=== PATIENT | male | born 1965 | race Two or more races ===

== ENCOUNTER 2017-01-11 01:40 | Emergency (ER) | payer OTHER ==
[2017-01-11 01:50] VITALS: TEMP 98.1; BMI 27.3
--- NOTE | 2017-01-11 02:20 | PDOC ---
History of Present Illness - General Chief Complaint: Lightheaded Stated Complaint: NAUSEA/DIZZINESS Time Seen by Provider: 01/11/17 01:51 History Source: Patient, Significant Other Exam Limitations: No Limitations - History of Present Illness Initial Comments: 01/11/17 02:12 51yo Male patient w/ PmHx: HTN, HLD, + significant family history (Mother, Father, 2 Brother w/ [place]; Father from [place] at 49) presents to ED c/o dizziness, SOB, Vomiting x 1 hr. Patient denies CP, Back pain, diarrhea, fever, diff breathing, rash, dysuria, hematuria, hematemsis, rectal bleeding, or any other complaints at this time. PCP- Dr. Grimes Past History - Travel Traveled outside of the country in the last 30 days: No Close contact w/someone who was outside of country & ill: No - Past Medical History Allergies/Adverse Reactions: Allergies Allergy/AdvReac Type Severity Reaction Status Date / Time No Known Allergies Allergy Verified 01/11/17 01:46 Home Medications: Ambulatory Orders Atorvastatin Calcium 20 mg PO HS 01/11/17 Metoprolol Succinate [Toprol Xl -] 25 mg PO BID 01/11/17 Ondansetron [Zofran Odt -] 4 mg SL Q6H PRN #20 od.tablet 01/11/17 HTN: Yes Hypercholesterolemia: Yes - Psycho/Social/Smoking Cessation Hx Suicidal Ideation: No Smoking History: Never smoked Number of Cigarettes Smoked Daily: 0 Review of Systems - Review of Systems Able to Perform ROS?: Yes Is the patient limited Pashto proficient: No Constitutional: Yes: Chills. No: Fever Respiratory: Yes: Shortness of Breath. No: Cough, Orthopnea, SOB at Rest, Stridor, Wheezing, Productive cough Cardiac (ROS): Yes: Lightheadedness. No: Chest Pain, Edema, Palpitations, Syncope, Chest Tightness ABD/GI: Yes: Nausea, Vomiting. No: Constipated, Diarrhea, Poor Appetite, Poor Fluid Intake, Rectal Bleeding, Indigestion, Abdominal cramping, Other ( Abdominal Pain) : No: Burning, Dysuria, Discharge, Frequency, Flank Pain, Hematuria, Urgency Musculoskeletal: No: Back Pain, Joint Pain, Neck Pain Integumentary: No: Erythema, Rash, Sweating Neurological: No: Headache, Numbness, Seizure, Tingling, Tremors, Weakness, Ataxia, Dizziness All Other Systems: Reviewed and Negative *Physical Exam - Vital Signs Last Vital Signs Temp Pulse Resp BP Pulse Ox 98.1 F 51 L 18 144/97 97 01/11/17 01:47 01/11/17 01:47 01/11/17 01:47 01/11/17 01:47 01/11/17 01:47 - Physical Exam General Appearance: Yes: Nourished, Appropriately Dressed, Moderate Distress. No: Apparent Distress, Mild Distress, Severe Distress Neck: positive: Trachea midline, Supple. negative: Lymphadenopathy (R), Lymphadenopathy (L) Respiratory/Chest: positive: Lungs Clear, Normal Breath Sounds. negative: Respiratory Distress, Accessory Muscle Use, Labored Respiration, Rapid RR Cardiovascular: positive: Regular Rhythm, Regular Rate. negative: Edema, JVD, Murmur Gastrointestinal/Abdominal: positive: Soft, Increased Bowel Sounds. negative: Normal Bowel Sounds, Distended, Guarding, Rebound, Tenderness Musculoskeletal: positive: Normal Inspection. negative: CVA Tenderness Extremity: positive: Normal Capillary Refill, Normal Inspection, Normal Range of Motion. negative: Pedal Edema, Swelling Integumentary: positive: Normal Color, Dry, Warm Neurologic: positive: manager intranet II-XII NML intact, Fully Oriented, Alert, Normal Mood/ Affect, Normal Response, Motor Strength 5/5 Heart Score/ECG Review - History History: Slightly suspicious - Electrocardiogram EKG: Normal - Age Age: 45-65 - Risk Factors Risk Factors Heart Score: Yes Hx Hypertension, Yes Positive family hx of cardiac disease Based on the list above the patient has:: 1-2 risk factors - Troponin Troponin: </= normal limit - Score Heart Score - Total: 2 - ECG Impressions Normal ECG: Yes Non-specific ST Elevation: No Ischemic Changes: No Bradycardia: Yes Torsades chris Pointes: No WPW: No ED Treatment Course - LABORATORY CBC & Chemistry Diagram: 01/11/17 02:31 01/11/17 02:31 *DC/Admit/Observation/Transfer Diagnosis at time of Disposition: Dizziness Nausea & vomiting Qualifiers: Vomiting type: unspecified Vomiting Intractability: non-intractable Qualified Code(s): R11.2 - Nausea with vomiting, unspecified - Discharge Dispostion Disposition: HOME Condition at time of disposition: Improved Admit: No - Prescriptions Prescriptions: Ondansetron [Zofran Odt -] 4 mg SL Q6H PRN #20 od.tablet PRN Reason: Nausea - Patient Instructions Printed Discharge Instructions: DI for Vertigo, DI for Nausea -- Adult Additional Instructions: FOLLOW UP WITH YOUR DOCTOR THIS WEEK DISCUSSED AND SCHEDULED. TAKE MEDICATIONS PRESCRIBED. RETURN IF SYMPTOMS WORSEN, OR ANY CONCERNS FOR FURTHER EVALUATION. Print Language: KOREAN - Post Discharge Activity Work/School Note: Back to Work
[2017-01-11] MEDS ORDERED: SODIUM CHLORIDE 1,000 ML IV STA (02:21)
[2017-01-11] MEDS ORDERED: METOCLOPRAMIDE HCL INJECTION 10 MG/2 ML VIAL IVPB ONE (02:21)
[2017-01-11] MEDS ORDERED: METOCLOPRAMIDE HCL INJECTION 10 MG/2 ML VIAL ONE (02:21)
[2017-01-11 02:40] LABS: BASOPHIL 0.4 % (0-2.0); EOSINOPHIL 4.4 % (0-4.5); MCHC 32.4 g/dl (32.0-35.9); MEAN CELL VOLUME 58.4 fl (80-96); MEAN PLT VOLUME 8.8 fl (7.5-11.1); NEUTROPHILS 51.8 % (42.8-82.8); PLATELET COUNT 168 K/MM3 (134-434); RDW 16.4 % (11.9-15.9); WHITE BLOOD COUNT 6.3 K/mm3 (4.0-10.0)
--- NOTE | 2017-01-11 02:51 | PDOC ---
[id number] 97 01/11/17 01:47 01/11/17 01:47 01/11/17 01:47 01/11/17 02:26 01/11/17 01:47 ED Treatment Course - LABORATORY CBC & Chemistry Diagram: 01/11/17 02:31 01/11/17 02:31 - Medications Given in the ED: ED Medications Discontinued Medications Generic Name Dose Route Start Last Admin Trade Name Freq PRN Reason Stop Dose Admin Metoclopramide HCl 10 mg 01/11/17 02:21 01/11/17 02:27 Reglan Injection - IVPB 01/11/17 02:22 10 mg ONCE ONE Administration Medical Decision Making - Medical Decision Making 01/11/17 02:50 agree with care from DELIA Iqbal *DC/Admit/Observation/Transfer Diagnosis at time of Disposition: Nausea & vomiting, Dizziness - Discharge Dispostion Disposition: HOME Condition at time of disposition: Improved - Prescriptions Prescriptions: Ondansetron [Zofran Odt -] 4 mg SL Q6H PRN #20 od.tablet PRN Reason: Nausea - Referrals Referrals: STAFF,NOT ON [Primary Care Provider] - - Patient Instructions Printed Discharge Instructions: DI for Vertigo, DI for Nausea -- Adult Additional Instructions: FOLLOW UP WITH YOUR DOCTOR THIS WEEK DISCUSSED AND SCHEDULED. TAKE MEDICATIONS PRESCRIBED. RETURN IF SYMPTOMS WORSEN, OR ANY CONCERNS FOR FURTHER EVALUATION. Print Language: MOH[place] - Post Discharge Activity Work/School Note: Back to Work
[2017-01-11 02:53] LABS: MCH 18.9 pg (25.7-33.7)
[2017-01-11 03:16] LABS: ALBUMIN 3.9 g/dl (3.4-5.0); AMYLASE 90 U/L (25-115); ANION GAP 12 (8-16); BILIRUBIN,TOTAL 2.6 mg/dL (0.2-1.0); CALCIUM 8.6 mg/dL (8.5-10.1); CO2 26 mmol/L (21-32); GLUCOSE,RANDOM 112 mg/dL (74-106); SGOT/AST 17 U/L (15-37); SGPT/ALT 28 U/L (12-78)
[2017-01-11 03:20] LABS: ALK PHOS 89 U/L (45-117); TROPONIN I < 0.02 ng/ml (0.00-0.05)
[2017-01-11] MEDS ORDERED: PANTOPRAZOLE SODIUM 40 MG in SODIUM CHLORIDE 100 ML IVPB ONE (03:35)
[2017-01-11] MEDS ORDERED: PANTOPRAZOLE SODIUM 100 ML IVPB ONE (03:41)
[2017-01-11 04:30] VITALS: BP 109/88; PULSE 60
[2017-01-11 05:19] LABS: PLATELET ESTIMATE ADEQUATE (NORMAL)
[2017-01-11 05:20] LABS: ANISOCYTOSIS 2+; HYPOCHROMIA 2+; MICROCYTOSIS 3+; OVALOCYTES 1+; POIKILOCYTOSIS 1+; POLYCHROMASIA 1+
--- NOTE | 2017-01-11 12:21 | EKG ---
Test Reason : Blood Pressure : / mmHG Vent. Rate : 054 BPM Atrial Rate : 054 BPM P-R Int : 166 ms QRS Dur : 098 ms QT Int : 428 ms P-R-T Axes : 047 032 038 degrees QTc Int : 405 ms SINUS BRADYCARDIA OTHERWISE NORMAL ECG NO PREVIOUS ECGS AVAILABLE Confirmed by ELI RIGGINS MD ([id number]) on 01/11/2017 12:21:09 PM Referred By: Confirmed By:ELI RIGGINS MD
== END 2017-01-11 04:30 | disposition home or self-care (01) ==
LOC: JER 01:40
PROC: 3E033GC Introduction of Other Therapeutic Substance into Peripheral Vein, Percutaneous Approach (ICD-10-PCS; principal; 2017-01-11)
DX: R42 Dizziness and giddiness (principal); I10 Essential (primary) hypertension
CPT/HCPCS: 36415; 71020-TC; 80053; 82150; 82550; 83690; 84484; 85025; 93005; 93010; 99283-25